=== PATIENT | male | born 1990 | race Caucasian/White ===

== ENCOUNTER 2024-12-30 16:45 | Emergency (ER) | payer OTHER, SELFPAY ==
[2024-12-30] VITALS (18 sets, daily range): BP systolic 121–163; BP diastolic 69–113; BMI 29.7
[2024-12-30] MEDS: DILAUDID 1 MG IV ×2 (16:55→20:07)
[2024-12-30] MEDS: VERSED 2 MG IV (17:06)
--- NOTE | 2024-12-30 17:18 | ED.MUSCINJ ---
HPI-Injury
<Jason Tavera PA-C - Last Filed: 12/30/24 20:05>
General
Chief Complaint: Trauma Significant Mechanism
Source: patient
Exam Limitations: none
Time Seen by Provider: 12/30/24 16:54
History of Present Illness-Injury
Initial Injury comments:
34-year-old male presents complaining of right ankle pain and deformity. He fell 15 feet out of a tree stand landing on his right ankle. He denies pain to the leg otherwise neck back or head. He is not anticoagulated. He is healthy otherwise.
No other at this time
Phy Exam
<Jason Tavera PA-C - Last Filed: 12/30/24 20:05>
Physical Exam
Physical Exam:
General: Well-appearing male in significant discomfort
HEENT normal cephalic atraumatic
Abdomen is soft and nontender
Musculoskeletal exam: Deformity noted to the right ankle of which the foot is inverted. The skin is tenting laterally. The skin is closed.
Vascular 2+ DP pulse right foot with brisk cap refill to the toes and good sensation to the foot
Injury Course
<Jason Tavera PA-C - Last Filed: 12/30/24 20:05>
Orders/Labs/Results
Orders:
Orders
12/30/24 16:54
HYDROmorphone [Dilaudid] 1 mg .ROUTE .STK-MED ONE
CR Ankle - Right Min 3 Views * Urgent
Comment:
Reason For Exam: deformity
12/30/24 16:55
HYDROmorphone [Dilaudid] 1 mg IV NOW STA
12/30/24 17:02
Midazolam HCl [Versed] 2 mg IV NOW STA
12/30/24 17:04
Midazolam HCl [Versed] 2 mg .ROUTE .STK-MED ONE
12/30/24 17:16
Propofol [Diprivan] 20 ml .ROUTE .STK-MED
12/30/24 18:00
ASA Classification Routine
Propofol [Diprivan] 80 mg IV NOW STA
12/30/24 18:41
Ketorolac [Toradol] 15 mg IV NOW STA
CR Ankle - Right 2 Views Urgent
Comment: portable
Reason For Exam: post reduction
12/30/24 19:05
CT Lower Ext W/o Iv Cont Rt Urgent
Comment:
Reason For Exam: ankle dislocation
12/30/24 19:57
HYDROmorphone [Dilaudid] 1 mg IV NOW STA
12/30/24 20:04
Crutches-Treatment ONCE
<Pranay Moreno, DO - Last Filed: 12/30/24 23:17>
Orders/Labs/Results
Orders:
Orders
12/30/24 16:54
HYDROmorphone [Dilaudid] 1 mg .ROUTE .STK-MED ONE
CR Ankle - Right Min 3 Views * Urgent
Comment:
Reason For Exam: deformity
12/30/24 16:55
HYDROmorphone [Dilaudid] 1 mg IV NOW STA
12/30/24 17:02
Midazolam HCl [Versed] 2 mg IV NOW STA
12/30/24 17:04
Midazolam HCl [Versed] 2 mg .ROUTE .STK-MED ONE
12/30/24 17:16
Propofol [Diprivan] 20 ml .ROUTE .STK-MED
12/30/24 18:00
ASA Classification Routine
Propofol [Diprivan] 80 mg IV NOW STA
12/30/24 18:41
Ketorolac [Toradol] 15 mg IV NOW STA
CR Ankle - Right 2 Views Urgent
Comment: portable
Reason For Exam: post reduction
12/30/24 19:05
CT Lower Ext W/o Iv Cont Rt Urgent
Comment:
Reason For Exam: ankle dislocation
12/30/24 19:57
HYDROmorphone [Dilaudid] 1 mg IV NOW STA
12/30/24 20:04
Crutches-Treatment ONCE
Procedures
<Pranay Moreno DO - Last Filed: 12/30/24 23:17>
Moderate Sedation
ASA Risk Score: Class I
Chart and allergies reviewed: Yes
Consent for anesthesia obtained: Yes
Time out completed (validating right patient & procedure): Yes
Moderate Sedation Start Time(when first medication is given): 18:28
History of difficult intubation: No
Airway free of obstruction: Yes
Patient has a gag reflex: Yes
Patient is able to open mouth: Yes
Patient has no dentures: Yes
Patient has no loose teeth: Yes
Medication administered by Provider during Moderate Sedation: IV Propofol (mg)
Total dose administered: 160
Time drug administered: 18:27
Moderate Sedation Procedure End Time: 19:00
Comment: Patient was talking throughout procedure. Initial dose of 80 mg administer
<Jason Tavera PA-C - Last Filed: 12/30/24 20:05>
MDM/Problems Addressed
Differential Diagnosis Includes:
Deformity right ankle question dislocation versus both. Initial attempt at reducing the ankle with Dilaudid and Versed unsuccessful. X-rays were ordered. Case discussed with emergency room attending who was in the room on the patient's arrival.
Plan on sedating for
<Jason Tavera PA-C - Last Filed: 12/30/24 20:05>
*Pulse Oximetry
SaO2: 100
Oxygen Mode of Delivery: Room air
Patient hypoxic: no
*Critical Care Note
Total Time (30-74mins, 75-104mins- exclusive of procedures): Not Applicable
<Pranay Moreno DO - Last Filed: 12/30/24 23:17>
*Radiology
Radiology exam reviewed: preliminary read by ED provider (I independently reviewed and interpreted x-ray of the right ankle showing subtalar dislocation)
<Jason Tavera PA-C - Last Filed: 12/30/24 20:05>
Update Note
Update Note:
Moderate sedation performed by emergency room attending. Total of 180 mg of propofol required. The knee was flexed the foot was hyper everted and longitudinal traction was applied and the talus was reduced. I applied a splint using cast padding
Lalita to OCL and Jone bandages in a posterior and U fashion. For further detail after the reduction a CT was performed which demonstrates reduction of the talus however there is a fracture of the anterior talus causing some subluxation. No
indication for any further intervention from emergency room standpoint. Will supply crutches and advised nonweightbearing and have him follow-up foot and ankle specialist. Please note that orthopedics, Dr. Acharya was involved throughout this
visit with recommendations regarding reduction and management otherwise
<Pranay Moreno, - Last Filed: 12/30/24 23:17>
Update Note
Update Note:
Moderate sedation performed by emergency room attending. Total of 160 mg of propofol required. The knee was flexed the foot was hyper everted and longitudinal traction was applied and the talus was reduced. I applied a splint using cast padding
Lalita to OCL and Jone bandages in a posterior and U fashion. For further detail after the reduction a CT was performed which demonstrates reduction of the talus however there is a fracture of the anterior talus causing some subluxation. No
indication for any further intervention from emergency room standpoint. Will supply crutches and advised nonweightbearing and have him follow-up foot and ankle specialist. Please note that orthopedicsDr. Acharya was involved throughout this
visit with recommendations regarding reduction and management otherwise
2030: Percocet prescription has been faxed to pharmacy by physician customer relations assistant, however this pharmacy is not open at current time. Patient is provided with a written prescription for small number of Percocets to get filled tonight at 24-hour
pharmacy.
ED Attending Note
<Jason Tavera PA-C - Last Filed: 12/30/24 20:05>
-
Portions of this chart may have been created with voice recognition software.� Occasional wrong word or��sound alike� substitutions may have occurred due to the inherent limitations of voice recognition software.
<Pranay Moreno DO - Last Filed: 12/30/24 23:17>
ED Attending Note
Patient seen and examined by attending physician: Yes
I performed the substantive portion of visit, reviewed & personally made and approve the management plan that is documented in note by myself or MICHAEL.: Yes
I performed a history and physical exam of patient and discussed management with resident, I reviewed resident's note and agree with documented findings and plan of care.: Yes
ED Attending Note:
34-year-old male presents to the ER via EMS for evaluation of severe pain in his right ankle after he fell out of a hunting hide landing directly on his right side. Patient reporting pain in his right ankle only. He denies back pain. No loss of
consciousness. No difficulty breathing. No abdominal discomfort. He is not on any anticoagulants. He has no prior medical history. He does have a prior history of multiple orthopedic repairs, in particular reports a previous dislocation of his
right ankle. Vital signs reviewed, patient is awake, alert, appears uncomfortable but in no acute distress, mucous membranes moist, no difficulty with mouth opening, posterior pharynx is clear, head is normocephalic atraumatic, PERRL, EOMI,
conjunctiva pink, moving head in all directions spontaneously without apparent discomfort, chest is nontender on palpation, no abnormal chest wall excursion, no crepitus, lungs are clear to auscultation bilaterally that wheezes rales or rhonchi,
heart regular rate and rhythm that murmurs or ectopy, abdomen is soft and nontender, pelvis is stable to rock, no pain on palpation of the left lower extremity with full active range of motion of the left lower extremity, right lower extremity
without pain on palpation on right femur or right knee, gross deformity noted to right foot and ankle with severe eversion of foot, right foot with cool pale coloration in comparison to normal left foot, 2+ DP pulses present symmetric bilateral feet
with intact sensation to light touch, GCS is 15.
Patient was given 1 mg of Dilaudid along with 2 mg of Versed but was unable to relax in order to have reduction of the dislocation. He was subsequently consented for procedural sedation. I administered propofol and monitored the airway while
physician customer relations assistant performed traction and placed a sugar-tong and dorsal splint on the patient's foot. Physician customer relations assistant was able to speak with orthopedist frequently, reviewing images. CT scan was ordered given concern for possible persistent
dislocation-CT scan reveals comminuted fracture of the talus cuboid along with an oblique fracture of the third metatarsal. This CT was reviewed by the orthopedic surgeon on-call who agrees with plan for splint and outpatient follow-up. Patient
was provided with Percocet for discomfort and discharged in good condition. He tolerated procedural sedation and splinting well.
Discharge Plan
Departure
Patient Disposition: Home (Routine Discharge)
Date of Disposition: 12/30/24
Time of Disposition: 20:02
Patient with high blood pressure during this ER visit?: No
Discharge Problem:
Closed fracture dislocation of subtalar joint
Instructions: Muscle, joint, and bone pain (DC)
Prescriptions:
New
oxycodone-acetaminophen [Percocet] 5-325 mg tablet
1 tab PO Q6H PRN (Reason: Pain) Qty: 14 0RF
oxycodone-acetaminophen [Percocet] 5-325 mg tablet
1 tab PO Q6HPRN PRN (Reason: pain) Qty: 7 0RF
Referrals:
Eric Acharya MD [Active, Orthopedics]
NONE,* [Family Provider, Internal Medicine]
Activity Restrictions/Additional Instructions:
Keep splint on and dry. Elevate for swelling. Use pain medicine as needed for severe pain. Continue to take ibuprofen. Follow-up with orthopedics for next available appointment
Interventions
Interventions:
*Risk Screen - Suicide Last Done: 12/30/24 16:52
*General Assessment Last Done: 12/30/24 16:52
*Neglect/Abuse Screening Last Done: 12/30/24 16:52
*ED- Fall Risk Assessment Last Done: 12/30/24 16:52
*ED COVID-19 Vaccine History Last Done: 12/30/24 16:53
*ED Influenza Vaccine History Last Done: 12/30/24 16:53
*Nursing Disposition Last Done: 12/30/24 21:14
Discharge Date and Time
Discharge Date/Time: 12/30/24 21:15
Print Language: NEPALI
[2024-12-30] MEDS: DIPRIVAN 80 MG IV (18:51)
[2024-12-30] MEDS: TORADOL 15 MG IV (18:52)
== END 2024-12-30 21:15 | disposition home or self-care (01) ==
LOC: EMR 16:45
PROVIDERS: EMERGENCY PHYSICIAN Emergency Medicine
DX: S93.04XA Dislocation of right ankle joint, initial encounter (principal); S92.121A Displaced fracture of body of right talus, initial encounter for closed fracture; S82.51XA Displaced fracture of medial malleolus of right tibia, initial encounter for closed fracture; S92.151A Displaced avulsion fracture (chip fracture) of right talus, initial encounter for closed fracture; S92.214A Nondisplaced fracture of cuboid bone of right foot, initial encounter for closed fracture; S92.334A Nondisplaced fracture of third metatarsal bone, right foot, initial encounter for closed fracture; W17.89XA Other fall from one level to another, initial encounter; Y93.89 Activity, other specified; Y92.828 Other wilderness area as the place of occurrence of the external cause
CPT/HCPCS: 99285; 96374; 96375 ×2; 96376; 28435; 73600; 73610; 73700